=== PATIENT | female | born 1950 | race Caucasian/White ===

== ENCOUNTER → 2024-08-23 | Outpatient (CLI) | payer MEDICARE, OTHER, SELFPAY ==
[2024-08-23 11:19] LABS: EXAGEN MAILED SPECIMEN
[2024-08-23 12:33] LABS: Erythrocyte Sedimentation Rate 60 mm/hr (0-30)
[2024-08-23 12:52] LABS: Absolute Lymphocyte Count 1.12 X10^3/uL (0.83-4.51); Absolute Neutrophil Count 4.8 X10^3/uL (2.0-7.7); Basophil# 0.03 X10^3/uL; Basophil% 0.5 % (0-1); Eosinophil# 0.04 X10^3/uL; Eosinophils% 0.6 % (0-5); Hemoglobin 11.2 g/dL (12.0-15.0); Lymphocyte # 1.12 X10^3/ul (0.83-4.51); Lymphocyte % 16.9 % (19-41); Mean Corpuscular Hgb 28.7 pg (27.0-32.0); Mean Corpuscular Volume 89.7 fL (81-99); Monocyte# 0.59 X10^3/uL; Monocyte% 8.9 % (0-10); NRBC Flagged by Analyzer 0 % (0-5); Neutrophil # 4.83 X10^3/uL (2.7-7.7); Neutrophil % 72.6 % (47-70); Platelet Count 403 K/mm3 (150-450); RBC Distribution Width CV 13.6 % (11.6-14.6); RBC Distribution Width SD 44.3 fl (35.1-43.9); White Blood Count 6.6 K/mm3 (4.4-11.0)
[2024-08-23 13:23] LABS: Protein, Urine (Random) 11.6 mg/dL (0.0-12.0); Protein:Creat Ratio 132 mg/g CRE (0-200)
[2024-08-23 13:57] LABS: ALB/GLOB Ratio 0.8 RATIO (0.9-2.4); AST(SGOT) 17 U/L (<=31); Alanine Aminotransfer ALT/SGPT 7 U/L (<=34); Albumin, Serum 3.6 g/dL (3.4-4.8); Alkaline Phosphatase 101 U/L (35-104); Anion Gap 13 (5-15); BUN 15 mg/dL (4-19); BUN/Creat Ratio 27.9 RATIO (10-20); Calcium,Total 9.7 mg/dL (7.6-11.0); Carbon Dioxide 22.5 mmol/L (21.0-32.0); Chloride 102 mmol/L (98-108); Creatinine, Serum 0.54 mg/dL (0.70-1.20); EST Glomerular Filtration Rate 98 (>60); Globulin 4.3 g/dL (2.2-4.2); Glucose 97 mg/dL (70-99); Hepatitis B Surface Antibody Nonreactive; Hepatitis B Surface Antigen Nonreactive (Nonreactive); Hepatitis C Antibody Nonreactive (Nonreactive); Potassium 4.2 mmol/L (3.3-5.1); Protein, Total 7.9 g/dL (5.9-8.4); Sodium Level 137 mmol/L (133-145); Total Bilirubin 0.42 mg/dL (0.00-1.30)
[2024-08-24 15:53] LABS: Color, Urine Yellow (Yellow); Glucose, Dipstick Normal (Normal); Ketone-Dipstick Negative (Negative); Leukocyte Esterase-Dipstick 25 /ul (Negative); Nitrite-Dipstick Negative (Negative); Occult Blood-Urine 50 /ul (Negative); Protein-Dipstick 15 mg/dl (Negative); Specific Gravity, Urine 1.015 (1.002-1.030); Urine Bilirubin Dipstick Negative (Negative); Urine Clarity Clear (Clear); Urine Urobilinogen Normal (Normal)
== END | disposition home or self-care (01) ==
LOC: MTLAB 10:12
PROVIDERS: PCP Nurse Practitioner Adult Health; Referring Provider Internal Medicine Rheumatology; Visit Provider Internal Medicine Rheumatology
DX: M06.4 Inflammatory polyarthropathy (principal); R76.8 Other specified abnormal immunological findings in serum
CPT/HCPCS: 36415; 80053; 81002; 82570; 84156; 85025; 85652; 86140; 86706; 86803; 87340

== ENCOUNTER → 2024-08-25 | Outpatient (CLI) | payer MEDICARE, OTHER, SELFPAY ==
[2024-08-25 15:08] LABS: Pathologist Comment May follow
[2024-08-25 17:27] LABS: Synovial Fld Mononuclear WBC # 1.307 10^3/ul; Synovial Fld Mononuclear WBC % 51.4 %; Synovial Fld Polynuclear WBC # 1.236 10^3/uL; Synovial Fld Polynuclear WBC % 48.6 %
[2024-08-25 22:41] LABS: AUTO B FLUID DILUENT BKGD CT WBC <0.1 RBC <0.01 (W<.1,R<.01)
[2024-08-25 23:32] LABS: Source / Synovial Fluid RIGHT KNEE; Source- Body Fluid SYNOVIAL
[2024-08-25 23:33] LABS: Appearance /Synovial Fluid Hazy (CLEAR); Color / Synovial Fluid Straw (Pale Yellow)
[2024-08-25 23:38] LABS: RBC /Synovial Fluid 475 /mm3 (0)
[2024-08-25 23:45] LABS: Pathologist Review Will follow
[2024-08-26 08:58] LABS: Lymph 10 %; Monocyte /Synovial Fluid 42 %; Neutrophil 48 % (0-25)
[2024-08-26 10:26] LABS: CRYSTALS, BODY FLUID See PATH REV
== END | disposition home or self-care (01) ==
LOC: LABSPEC 13:31
PROVIDERS: PCP Nurse Practitioner Adult Health; Referring Provider Internal Medicine Rheumatology; Visit Provider Internal Medicine Rheumatology
DX: M06.4 Inflammatory polyarthropathy (principal); R76.8 Other specified abnormal immunological findings in serum; M25.561 Pain in right knee; G44.009 Cluster headache syndrome, unspecified, not intractable; J45.909 Unspecified asthma, uncomplicated; I10 Essential (primary) hypertension
CPT/HCPCS: 87070; 87075; 87205; 89050; 89051; 89060

== ENCOUNTER → 2024-09-27 | Outpatient (CLI) | payer MEDICARE, OTHER, SELFPAY ==
[2024-09-27 20:47] LABS: Synovial Fld Mononuclear WBC # 0.924 10^3/ul; Synovial Fld Mononuclear WBC % 89.3 %; Synovial Fld Polynuclear WBC # 0.111 10^3/uL; Synovial Fld Polynuclear WBC % 10.7 %
[2024-09-27 20:56] LABS: RBC /Synovial Fluid 0.003 10^6/uL (0)
[2024-09-28 02:35] LABS: AUTO B FLUID DILUENT BKGD CT WBC <0.1 RBC <0.01 (W<.1,R<.01); Source / Synovial Fluid LEFT KNEE; Source- Body Fluid SYNOVIAL
[2024-09-28 02:36] LABS: Color / Synovial Fluid Yellow (Pale Yellow)
[2024-09-28 02:37] LABS: Appearance /Synovial Fluid Cloudy (CLEAR)
[2024-09-28 03:11] LABS: Other Cell /Synovial Fluid 2 %
[2024-09-28 03:26] LABS: CRYSTALS, BODY FLUID See PATH REV
[2024-09-28 03:27] LABS: Body Fluid QC Type(s) BF1Q,BF2Q
[2024-10-01 15:15] LABS: Lymph 36 %; Neutrophil 7 % (0-25)
[2024-10-01 15:16] LABS: Monocyte /Synovial Fluid 57 %
[2024-10-02 17:57] LABS: Pathologist Comment Reviewed
[2024-10-02 17:58] LABS: Pathologist Review Reviewed
== END | disposition home or self-care (01) ==
PROVIDERS: PCP Nurse Practitioner Adult Health; Referring Provider Internal Medicine Rheumatology; Visit Provider Internal Medicine Rheumatology
DX: M06.4 Inflammatory polyarthropathy (principal); M25.562 Pain in left knee
CPT/HCPCS: 87070; 87075; 87205; 89050; 89051; 89060